=== PATIENT | female | born 1985 | race Caucasian/White ===

== ENCOUNTER 2021-08-18 19:52 | Emergency (ER) | payer MEDICARE, MEDICAID ==
[~2021-08-18] VITALS: Ht 162.6 cm; Wt 90.9 kg
[2021-08-18 20:00] VITALS: BP 135/87
[2021-08-18] MEDS ORDERED: DOXYCYCLINE HYCLATE 100 MG TABLET PO ONE (20:15)
[2021-08-18] MEDS ORDERED: cefTRIAXone IM 500 MG VIAL. IM ONE (20:15)
[2021-08-18] MEDS ORDERED: DOXY100C3 PO (20:43)
[2021-08-18] MEDS ORDERED: AMOX1TAB61 PO (20:43)
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
[2021-08-18] MEDS ORDERED: KETOROLAC 60 MG/2 ML VIAL. IM ONE (21:30)
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
[2021-08-20 19:11] LABS: CHLAMYDIA PROBE Negative (Negative)
== END 2021-08-18 22:14 | disposition home or self-care (01) ==
LOC: ER 19:52 → EEVIPCON 19:52 → ER 22:14
DX: S40.022A Contusion of left upper arm, initial encounter (principal); S50.12XA Contusion of left forearm, initial encounter; S60.812A Abrasion of left wrist, initial encounter; S60.512A Abrasion of left hand, initial encounter; R51.9 Headache, unspecified; M54.59 Other low back pain; Y00.XXXA Assault by blunt object, initial encounter; Y93.89 Activity, other specified; Y92.89 Other specified places as the place of occurrence of the external cause; Y99.8 Other external cause status
CPT/HCPCS: 70450; 72125; 72131; 73060; 73090; 73130; 81025; 87491; 87591; 96372; 99285; J0696; J1885; Q0111; 99284